=== PATIENT | female | born 1970 | race Caucasian/White ===

== ENCOUNTER 2016-12-15 19:21 | Emergency (ER) | payer BC ==
[~2016-12-15] VITALS: Ht 160 cm; Wt 129.5 kg
[~2016-12-15 19:21] MED LIST: AMITRIPTYLINE H10 M1 PO; BACTRIM DS 8001 TAB PO; EFFEXOR-XR150 MG PO; EPIPEN 2-PAK1 MG/ML IM; FLEXERIL 1010 MG/TAB PO; HCTZ 25MG TAB25 MG PO; KLOR-CON PO; LASIX; LEVAQUIN 5500 MG/TA1 PO; LINZESS145CAP PO; LYRICA75 MG PO; NORCO 325 MG-51 TAB PO; RT ADVAIR 528 DISKUS IH; SINGULAIR 110 MG/TAB PO; TOPAMAX 25MG25 M1 PO; WELLBUTRIN 75MG75 MG PO; ZESTRIL 10MG10 MG PO; ZESTRIL 20MG TA20 MG PO
[2016-12-15 19:23] VITALS: BP 146/77; TEMP 97.8
[2016-12-15] MEDS ORDERED: DESYREL 50MG50 MG PO (19:53)
[2016-12-15 20:45] VITALS: PULSE 70
== END 2016-12-15 20:46 | disposition home or self-care (01) ==
LOC: COL.ER 19:21
DX: G43.909 Migraine, unspecified, not intractable, without status migrainosus (principal)
CPT/HCPCS: J0595; J1200; J1885; J2550

== ENCOUNTER → 2017-02-02 | Outpatient (CLI) | payer BC ==
[~2017-02-02] MED LIST changes: +DESYREL 50MG50 MG PO
== END ==
LOC: MC.RAD 07:37
DX: Z12.31 Encounter for screening mammogram for malignant neoplasm of breast (principal)

== ENCOUNTER 2017-05-23 12:38 | Emergency (ER) | payer BC ==
[~2017-05-23] VITALS: Ht 170.2 cm; Wt 132.7 kg
[2017-05-23] MEDS ORDERED: PROAIR HFA0.09 MG/AC IH (13:22)
[2017-05-23] MEDS ORDERED: IPRATROPIUM BROM3 M1 IH (13:23)
[2017-05-23] MEDS ORDERED: LEVAQUIN 750MG750 M1 PO (13:23)
[2017-05-23] MEDS ORDERED: TOPAMAX50 MG PO (13:23)
[2017-05-23] MEDS ORDERED: BREO IH (13:23)
[2017-05-23 13:25] LABS: BASO % 0.2 % (0.0-2.0); EOS # 0.1 (0.0-0.7); EOS % 0.8 % (0-4.0); GRAN # 14.1 (1.4-6.5); GRAN % 81.4 % (42.2-75.2); HEMATOCRIT 43.1 % (37.0-47.0); HEMOGLOBIN 13.6 g/dl (12.5-16.0); LYMPH # 2.5 (1.2-3.4); LYMPH % 14.7 % (20.0-51.0); MEAN CELL VOLUME 86 fl (80.0-100.0); MEAN CORPUSCULAR HEMOGLOBIN 27 pg (27.0-31.0); MEAN CORPUSCULAR HGB CONC 32 g/dl (33.0-37.0); MEAN PLATELET VOLUME 9.7 fl (7.4-10.4); MONO # 0.4 (0.1-0.6); MONO % 2.4 % (1.7-9.3); PLATELET COUNT 260 K/mm3 (130-400); REDCELL DISTRIBUTION WIDTH-CV 14.4 % (11.5-14.5)
[2017-05-23 13:35] LABS: ALBUMIN 3.7 gm/dL (3.5-5.0); BILIRUBIN,TOTAL 0.8 mg/dL (0.0-1.0); C-REACTIVE PROTEIN 5.7 mg/dL (0.0-0.9); CREATININE, serum 0.97 mg/dL (0.52-1.25); POTASSIUM 3.2 mmol/L (3.4-5.0); TOTAL PROTEIN 7.4 gm/dL (6.4-8.2)
[2017-05-23 14:28] VITALS: BP 145/73; PULSE 102; TEMP 98.7
[2017-05-23] MEDS ORDERED: ULTRAM 50MG TAB50 MG PO (14:29)
== END 2017-05-23 14:55 | disposition home or self-care (01) ==
LOC: COL.ER 12:38
PROVIDERS: Physician Assistant
DX: J45.909 Unspecified asthma, uncomplicated (principal); Z87.39 Personal history of other diseases of the musculoskeletal system and connective tissue; Z90.710 Acquired absence of both cervix and uterus; Z79.51 Long term (current) use of inhaled steroids
CPT/HCPCS: J7030

== ENCOUNTER 2017-05-25 07:17 | Emergency (ER) | payer BC ==
[~2017-05-25] VITALS: Ht 170.2 cm; Wt 132.7 kg
[~2017-05-25 07:17] MED LIST changes: +BREO IH; +IPRATROPIUM BROM3 M1 IH; +LEVAQUIN 750MG750 M1 PO; +PROAIR HFA0.09 MG/AC IH; +TOPAMAX50 MG PO; +ULTRAM 50MG TAB50 MG PO
[2017-05-25 07:24] VITALS: TEMP 97.6
[2017-05-25 08:15] LABS: BASO % 0.2 % (0.0-2.0); EOS # 0.2 (0.0-0.7); EOS % 2.3 % (0-4.0); GRAN % 77.9 % (42.2-75.2); HEMATOCRIT 39.4 % (37.0-47.0); HEMOGLOBIN 12.2 g/dl (12.5-16.0); LYMPH # 1.5 (1.2-3.4); LYMPH % 16.8 % (20.0-51.0); MEAN CELL VOLUME 88 fl (80.0-100.0); MEAN CORPUSCULAR HEMOGLOBIN 27 pg (27.0-31.0); MEAN CORPUSCULAR HGB CONC 31 g/dl (33.0-37.0); MEAN PLATELET VOLUME 9.6 fl (7.4-10.4); MONO # 0.2 (0.1-0.6); MONO % 2.1 % (1.7-9.3); PLATELET COUNT 238 K/mm3 (130-400); REDCELL DISTRIBUTION WIDTH-CV 14.3 % (11.5-14.5)
[2017-05-25 08:25] LABS: ALBUMIN 3.6 gm/dL (3.5-5.0); BILIRUBIN,TOTAL 1.4 mg/dL (0.0-1.0); CREATININE, serum 1.1 mg/dL (0.52-1.25); POTASSIUM 3.3 mmol/L (3.4-5.0); TOTAL PROTEIN 7.7 gm/dL (6.4-8.2)
[2017-05-25 09:56] LABS: COLLECTION METHOD CLEAN CATCH
[2017-05-25 10:06] LABS: MUCOUS Present /lpf; PH 6 (5-8); SQUAMOUS EPITHELIAL 0-2 /hpf; URINE APPEARANCE Clear; URINE BACTERIA None Seen /hpf; URINE BILIRUBIN Negative (NEGATIVE); URINE BLOOD 1+ (NEGATIVE); URINE COLOR Yellow; URINE GLUCOSE Negative (NEGATIVE); URINE KETONE Trace (NEGATIVE); URINE LEUKOCYTE ESTERASE Negative (NEGATIVE); URINE NITRATE Negative (NEGATIVE); URINE PROTEIN(semi-quant) Negative (NEGATIVE); URINE RBC 0-2 /hpf
[2017-05-25 10:08] VITALS: BP 118/75; PULSE 105
== END 2017-05-25 09:52 | disposition short-term general hospital (02) ==
LOC: COL.ER 07:17
PROVIDERS: Emergency Medicine
DX: I21.4 Non-ST elevation (NSTEMI) myocardial infarction (principal); J20.9 Acute bronchitis, unspecified; J45.909 Unspecified asthma, uncomplicated; Z82.49 Family history of ischemic heart disease and other diseases of the circulatory system; Z79.51 Long term (current) use of inhaled steroids
CPT/HCPCS: J1644; J2060

== ENCOUNTER 2017-07-23 15:42 | Emergency (ER) | payer BC ==
[~2017-07-23] VITALS: Ht 170.2 cm; Wt 127.3 kg
[2017-07-23 15:44] VITALS: BP 133/83; PULSE 96; TEMP 98.2
[2017-07-23] MEDS ORDERED: RT SPIRIVA18 MCG IH (16:02)
== END 2017-07-23 17:32 | disposition home or self-care (01) ==
LOC: COL.ER 15:42
DX: G43.909 Migraine, unspecified, not intractable, without status migrainosus (principal); J45.909 Unspecified asthma, uncomplicated; M79.7 Fibromyalgia; Z90.710 Acquired absence of both cervix and uterus; Z90.89 Acquired absence of other organs
CPT/HCPCS: J0595; J2550

== ENCOUNTER → 2017-08-25 | Outpatient (CLI) | payer BC ==
[~2017-08-25] MED LIST changes: +RT SPIRIVA18 MCG IH
== END ==
LOC: COL.RAD 13:43
DX: G43.809 Other migraine, not intractable, without status migrainosus (principal)
CPT/HCPCS: Q9967

== ENCOUNTER → 2017-09-13 | Outpatient (CLI) | payer BC | LOC: COL.RAD 07:57 | DX: M54.5 Low back pain (principal) ==

== ENCOUNTER 2017-10-19 07:51 | Emergency (ER) | payer OTHER, BC ==
[~2017-10-19] VITALS: Ht 170.2 cm; Wt 135.5 kg
[2017-10-19 07:52] VITALS: TEMP 97.8
[2017-10-19] MEDS ORDERED: PRINIVIL20 MG PO (07:54)
[2017-10-19 08:18] LABS: BASO # 0.1 (0.0-0.2); BASO % 0.5 % (0.0-2.0); EOS # 0.2 (0.0-0.7); EOS % 2.4 % (0-4.0); GRAN # 6.5 (1.4-6.5); GRAN % 70.3 % (42.2-75.2); HEMATOCRIT 44.3 % (37.0-47.0); LYMPH # 1.9 (1.2-3.4); LYMPH % 20.7 % (20.0-51.0); MEAN CELL VOLUME 84 fl (80.0-100.0); MEAN CORPUSCULAR HEMOGLOBIN 27 pg (27.0-31.0); MEAN CORPUSCULAR HGB CONC 32 g/dl (33.0-37.0); MEAN PLATELET VOLUME 9.4 fl (7.4-10.4); MONO # 0.5 (0.1-0.6); MONO % 5.7 % (1.7-9.3); PLATELET COUNT 272 K/mm3 (130-400); RED BLOOD COUNT 5.25 M/mm3 (4.10-5.30); REDCELL DISTRIBUTION WIDTH-CV 13.9 % (11.5-14.5)
[2017-10-19 08:25] LABS: ALBUMIN 3.9 gm/dL (3.5-5.0); BILIRUBIN,TOTAL 0.7 mg/dL (0.0-1.0); CALCIUM 8.9 mg/dL (8.4-10.2); CREATININE, serum 1.13 mg/dL (0.52-1.25); POTASSIUM 3.9 mmol/L (3.4-5.0); TOTAL PROTEIN 7.8 gm/dL (6.4-8.2)
[2017-10-19 09:04] LABS: COLLECTION METHOD CLEAN CATCH
[2017-10-19 09:10] LABS: MUCOUS Present /lpf; PH 6 (5-8); URINE APPEARANCE Clear; URINE BACTERIA Rare /hpf; URINE BILIRUBIN Negative (NEGATIVE); URINE BLOOD Negative (NEGATIVE); URINE COLOR Straw; URINE GLUCOSE Negative (NEGATIVE); URINE KETONE Negative (NEGATIVE); URINE LEUKOCYTE ESTERASE Negative (NEGATIVE); URINE NITRATE Negative (NEGATIVE); URINE PROTEIN(semi-quant) Negative (NEGATIVE); URINE UROBILINOGEN Negative (NEGATIVE)
[2017-10-19 09:34] VITALS: BP 125/73; PULSE 87
== END 2017-10-19 09:35 | disposition other institution (70) ==
LOC: COL.ER 07:51
PROVIDERS: Emergency Medicine
DX: S20.211A Contusion of right front wall of thorax, initial encounter (principal); I10 Essential (primary) hypertension; F32.9 Major depressive disorder, single episode, unspecified; F41.9 Anxiety disorder, unspecified; Z88.0 Allergy status to penicillin; Z88.2 Allergy status to sulfonamides; V43.52XA Car driver injured in collision with other type car in traffic accident, initial encounter; Y92.410 Unspecified street and highway as the place of occurrence of the external cause
CPT/HCPCS: Q9967

== ENCOUNTER → 2017-12-11 | Outpatient (CLI) | payer BC ==
[~2017-12-11] MED LIST changes: +PRINIVIL20 MG PO
== END ==
LOC: MC.RAD 08:56
DX: N64.1 Fat necrosis of breast (principal)
CPT/HCPCS: G0279

== ENCOUNTER → 2018-02-05 | Outpatient (CLI) | payer BC | LOC: MC.RAD 08:52 | DX: Z12.31 Encounter for screening mammogram for malignant neoplasm of breast (principal) | CPT/HCPCS: G0279 ==

== ENCOUNTER → 2018-12-13 | Outpatient (CLI) | payer BC ==
[~2018-12-13] MED LIST changes: +ERGOCALCIFER50000 IU PO; +LYRICA 75MG CAP75 MG PO; +PLAQUENIL 200M200 MG PO; +VIIBRYD20 MG PO
== END ==
LOC: COL.RAD 10:51
DX: R10.9 Unspecified abdominal pain (principal)

== ENCOUNTER → 2020-01-10 | Outpatient (CLI) | payer BC | LOC: MC.RAD 07:23 | DX: Z12.31 Encounter for screening mammogram for malignant neoplasm of breast (principal) ==

== ENCOUNTER 2020-04-30 01:16 | Emergency (ER) | payer BC ==
[~2020-04-30] VITALS: Ht 170.2 cm; Wt 136.4 kg
[2020-04-30 01:23] VITALS: TEMP 97.6
[2020-04-30] MEDS ORDERED: CRUTCHES MC (02:36)
[2020-04-30 03:00] VITALS: BP 146/80; PULSE 80
== END 2020-04-30 03:00 | disposition home or self-care (01) ==
LOC: COL.ER 01:16
DX: M25.561 Pain in right knee (principal); M10.9 Gout, unspecified; Z88.0 Allergy status to penicillin; Z88.2 Allergy status to sulfonamides; Z88.1 Allergy status to other antibiotic agents
CPT/HCPCS: J1885; L1830; L1846

== ENCOUNTER → 2021-05-07 | Outpatient (CLI) | payer BC ==
[~2021-05-07] MED LIST changes: +CRUTCHES MC
== END ==
LOC: MC.RAD 03-23 08:45
DX: Z12.31 Encounter for screening mammogram for malignant neoplasm of breast (principal)

== ENCOUNTER → 2023-01-25 | Outpatient (CLI) | payer BC | LOC: CANSCHCLI → MC.RAD 07:08 | DX: Z12.31 Encounter for screening mammogram for malignant neoplasm of breast (principal) ==